=== PATIENT | male | born 1970 | race Caucasian/White ===

== ENCOUNTER → 2018-08-01 17:38 | Outpatient (CLI) | payer SELFPAY ==
[2018-07-25 15:04] VITALS: BMI 31.6
--- NOTE | 2018-08-01 17:39 | CT_ITS ---
STUDY: CT ABDOMEN AND PELVIS WITHOUT CONTRAST REASON FOR EXAM: Male, 48 years old. Left-sided groin pain extending into the testicle RADIATION DOSAGE (If Supplied By Facility): CTDIvol = ( 14.26 ) mGy, DLP = ( 760.08 ) mGycm TECHNIQUE: Transaxial images were obtained from the dome of the diaphragm to the symphysis pubis without oral contrast, and without intravenous contrast. Sagittal and coronal images were reconstructed. Individualized dose optimization techniques were used for this CT. COMPARISON: None. FINDINGS: 4 mm noncalcified nodule in the right middle lobe on axial image 3 and a 4 mm noncalcified nodule in the left lower lobe on axial image 3. The visualized portions of the heart are within normal limits. Normal liver. Normal gallbladder and extrahepatic biliary system. Normal spleen. Normal pancreas. Normal bilateral adrenal glands. Normal right kidney. Normal left kidney. Normal visualized stomach. Normal small intestine. Normal colon. The appendix is visualized and appears normal. Mild scattered atherosclerosis of the abdominal aorta. Normal inferior vena cava. Normal retroperitoneum. Normal urinary bladder. Normal abdominal wall. Mild multilevel degenerative disc disease of the thoracolumbar spine. Discal calcification of L2-L3 is noted. Moderate facet arthropathy in the lumbosacral junction region likely causing left foraminal stenosis. CT/Abdomen/Pelvis without Cont IMPRESSION: 1. No hydronephrosis or urinary tract calcifications. 2. Right middle and left lower lobe 4 mm noncalcified pulmonary nodules. No comparison studies. Recommend follow-up chest CT in one year if patient is considered high risk for malignancy (or sooner, if clinically indicated). 3. Degenerative disc disease and facet arthropathy, as above. Electronically Signed: Moose Serrato MD at 17:10 EST , Service support ,
== END ==
PROVIDERS: Family Provider Family Medicine; PCP Family Medicine; Referring Provider Family Medicine; Visit Provider Family Medicine
DX: R10.32 Left lower quadrant pain (principal); G89.29 Other chronic pain
CPT/HCPCS: 74176